=== PATIENT | female | born 1990 | race Caucasian/White ===

== ENCOUNTER → 2018-09-13 | Outpatient (CLI) | payer BC | LOC: CIMAGING 09:39 | PROVIDERS: ATTEND Physician Assistant Medical | DX: R22.1 Localized swelling, mass and lump, neck (principal) ==

== ENCOUNTER 2018-10-25 08:13 | Observation (INO) | payer BC ==
[2018-10-25] MEDS ORDERED: LR 1,000 ML IV ONE (08:25)
[2018-10-25] MEDS ORDERED: MIDAZOLAM 2 MG/2 ML VIAL IVP ONE (08:39)
--- NOTE | 2018-10-25 08:39 | PDANEPAE ---
ANE Past Medical History - Cardiovascular History Hx Hypertension: No Hx Arrhythmias: No Hx Chest Pain: No Hx Coronary Artery / Peripheral Vascular Disease: No Hx CHF / Valvular Disease: No Hx Palpitations: No - Pulmonary History Hx COPD: No Hx Asthma/Reactive Airway Disease: No Hx Recent Upper Respiratory Infection: No Hx Oxygen in Use at Home: No Hx Sleep Apnea: No Sleep Apnea Screening Result - Last Documented: Negative - Neurologic History Hx Cerebrovascular Accident: No Hx Seizures: No Hx Dementia: No - Endocrine History Hx Diabetes: No Hypothyroid: No Hyperthyroid: No Obesity: no - Renal History Hx Renal Disorders: No - Liver History Hx Hepatic Disorders: No - Neurological & Psychiatric Hx Hx Neurological and Psychiatric Disorders: No Neurological / Psychiatric History Comment: situational anxiety - Cancer History Hx Cancer: No - Congenital Disorder History Hx Congenital Disorders: No - GI History GERD: no Hx Gastrointestinal Disorders: No - Other Health History Other Health History: dental implant - Chronic Pain History Chronic Pain: No - Surgical History Prior Surgeries: none ANE Review of Systems Review of Systems: - Exercise capacity Exercise capacity: >=4 METS METS (RN): 5 METS ANE Patient History - Allergies Allergies/Adverse Reactions: No Known Allergies Allergy (Unverified 10/16/18 09:01) - Home Medications Home Medications: Spironolactone 100 mg PO DAILY 10/16/18 [Last Taken Unknown] Spironolactone [Aldactone 25 MG (*)] 50 mg PO DAILY 10/16/18 [Last Taken Unknown ] - Anes Hx Anes Hx: no prior problems Hx Anesthesia Complications (with details): dental implant surgery only. - Smoking Hx Smoking Status: Never smoked - Alcohol Use Alcohol Use: Occasionally - Family Anes Hx Family Anes Hx: neg - N/A Family Hx Anesthesia Complications: none ANE Labs/Vital Signs - Labs Result Diagrams: 10/25/18 09:00 - Vital Signs Height: 175.26 cm Weight: 64.864 kg ANE Physical Exam - Airway Neck exam: FROM Mallampati Score: Class 1 Mouth exam: normal dental/mouth exam - Pulmonary Pulmonary: no respiratory distress, no rales or rhonchi, clear to auscultation - Cardiovascular Cardiovascular: regular rate and rhythym, no murmur, rub, or gallop - ASA Status ASA Status: I ANE Anesthesia Plan Anesthesia Plan: general endotracheal anesthesia Total IV Anesthesia: No
[2018-10-25] MEDS ORDERED: DEXAMETHASONE 10 MG/ML VIAL IVP ONE (09:42)
[2018-10-25] MEDS ORDERED: ceFAZolin 2 GM/DEXTROSE 100 ML IV ONE ×2 (09:42→10:00)
--- NOTE | 2018-10-25 09:42 | PDHPUP ---
History & Physical Update H&P update statement: This history and physical update is based on an assessment of the patient which was completed after admission or registration (within 24 hours), but prior to the surgery/procedure. H&P update: H&P reviewed & patient examined, no change in patient's condition since H&P completed
[2018-10-25] MEDS ORDERED: DEXAMETHASONE 4 MG/ML VIAL IV ONE (09:45)
[2018-10-25] MEDS ORDERED: fentaNYL 100 MCG/2 ML INJ ONE ×3 (10:09→13:16)
[2018-10-25] MEDS ORDERED: PROPOFOL 200 MG/20 ML VIAL ONE (10:09)
[2018-10-25] MEDS ORDERED: LIDO/EPI 1% **for epidural** 30 ML SDV ONE (10:10)
[2018-10-25] MEDS ORDERED: KETOROLAC 30 MG/1 ML SDV ONE (10:10)
[2018-10-25] MEDS ORDERED: ROCURONIUM 50 MG/5 ML VIAL ONE (10:10)
[2018-10-25] MEDS ORDERED: BACITRACIN ZINC 14.2 GM OINTTUBE TP ONE (10:10)
[2018-10-25] MEDS ORDERED: ONDANSETRON 4 MG/2 ML VIAL ONE ×3 (10:10→13:17)
[2018-10-25] MEDS ORDERED: LIDOCAINE 2% 5 ML SDV ONE (10:11)
[2018-10-25] MEDS ORDERED: LIDO/EPI 1% **Not for Epidural 20 ML MDV ONE (10:11)
[2018-10-25] MEDS ORDERED: NALOXONE HCL 0.4 MG/ML INJ IVP PRN (10:20)
[2018-10-25] MEDS ORDERED: HYDROCODONE/APAP 5/325 TAB PO PRN (10:20)
[2018-10-25] MEDS ORDERED: MEPERIDINE 25 MG/0.5 ML AMP IVP PRN (10:20)
[2018-10-25] MEDS ORDERED: oxyCODONE IR 5 MG TAB PO PRN (10:20)
[2018-10-25] MEDS ORDERED: ONDANSETRON 4 MG/2 ML VIAL IVP PRN (10:20)
[2018-10-25] MEDS ORDERED: LR 500 ML IV PRN (10:20)
[2018-10-25] MEDS ORDERED: PHENYLEPHRINE HCL 100 MCG/ML SYR IVP PRN (10:20)
[2018-10-25] MEDS ORDERED: PROMETHAZINE HCL 25 MG/ML INJ IVP PRN (10:20)
[2018-10-25] MEDS ORDERED: ACETAMINOPHEN 500 MG TAB PO PRN (10:20)
[2018-10-25] MEDS ORDERED: ceFAZolin 1 GM VIAL ONE ×2 (10:24)
[2018-10-25] MEDS ORDERED: DEXAMETHASONE 4 MG/ML VIAL ONE ×2 (10:45)
[2018-10-25] MEDS ORDERED: PHENYLEPHRINE HCL 100 MCG/ML SYR ONE (10:46)
[2018-10-25] MEDS ORDERED: GLYCOPYRROLATE 0.2 MG/1 ML VIAL ONE ×2 (12:27)
[2018-10-25] MEDS ORDERED: NEOSTIGMINE METHYLSULFATE 5 MG/5 ML SYR ONE (12:27)
[2018-10-25] MEDS: fentaNYL 100 MCG/2 ML INJ IVP PRN ×2 (13:21→13:37)
--- NOTE | 2018-10-25 13:21 | POSTOPPROG ---
Post Op Note Date of Operation: 10/25/18 Surgeon: Felipe Rg Furniture Inspector: Liban Porter Anesthesiologist: CLARE Anesthesia: GET(General Endotracheal) Pre-op Diagnosis: TGD cyst Post-op Diagnosis: same Indication: enlarging cyst Procedure: Rich Findings: Large cyst with inflammation and scarring around hyoid Inf/Abcess present in the surg proc area at time of surgery?: No Depth: Deep Incisional (Fascial) Complications: none Drains: Imtiaz Hartmann
--- NOTE | 2018-10-25 13:29 | POSTANESTH ---
Post Anesthetic Evaluation Cardiovascular Status: Normal, Stable Respiratory Status: Normal, Stable Level of Consciousness/Mental Status: Can Participate in Eval Pain Control: Adequate, Prn Tx Ordered Nausea/Vomiting Control: Adequate, Prn Tx Ordered Complications Possibly Related to Anesthesia: None Noted
[2018-10-25] MEDS ORDERED: D5W LR 1,000 ML IV SCH (13:30)
[2018-10-25] MEDS ORDERED: PROMETHAZINE HCL 25 MG/ML INJ ONE (13:39)
[2018-10-25] MEDS ORDERED: oxyCODONE IR 5 MG TAB ONE (13:44)
[2018-10-25] MEDS ORDERED: ACETAMINOPHEN 500 MG TAB ONE (13:45)
[2018-10-25] MEDS ORDERED: PETROLAT,WHT/MIN OIL/SOD CHL 3.5 GM OPHT.OINT EACHEYE PRN (15:03)
[2018-10-25] MEDS ORDERED: HYDROmorphONE/DILAUDID 2 MG/ML INJ IVP PRN (16:33)
--- NOTE | 2018-10-25 17:49 | SOAPPROG ---
SOAP Progress Note Assessment/Plan: Assessment: Pt had some trouble getting pain under control, but is now more comfortable. She complains of right eye irritation , likely had an eye abrasion. I did not see any foreign body. Plan: Likely discharge in the am. Mom given a script for hycet 7.5/325 tablet quant #25 to fill for the pt. 10/25/18 17:46 Subjective: Pt complains of right eye irritation. The anesthesiologist gave her lacrilube. No SOB On exam the eye looks OK. Neck is flat Objective: Vital Signs Temp Pulse Resp BP Pulse Ox 36.9 C 62 14 91/51 L 99 10/25/18 17:19 10/25/18 17:19 10/25/18 17:19 10/25/18 17:19 10/25/18 17:19 Laboratory Results 10/25/18 09:00 10/24/18 10/25/18 10/26/18 05:59 05:59 05:59 Intake Total 1630 Output Total 35 Balance 1595 ICD10 Worksheet Patient Problems: Problems Problem Status Onset Thyroglossal cyst Acute - ICD10 Problem Qualifiers (1) Thyroglossal cyst
[2018-10-25] MEDS: HYDROCODONE/APAP 5/325 TAB PO PRN (20:12)
[2018-10-25] MEDS: ONDANSETRON 4 MG/2 ML VIAL IVP PRN (20:12)
[2018-10-26] MEDS: ONDANSETRON 4 MG/2 ML VIAL IVP PRN ×2 (01:33→06:24)
[2018-10-26] MEDS: HYDROCODONE/APAP 5/325 TAB PO PRN ×3 (01:34→06:24)
--- NOTE | 2018-10-26 05:58 | GOP ---
DATE OF OPERATION: 10/25/2018 SURGEON: Felipe Rg MD ASSISTANT TEACHER: Liban Porter MD. ANESTHESIA: General. PREOPERATIVE DIAGNOSIS: Thyroglossal duct cyst. POSTOPERATIVE DIAGNOSIS: Thyroglossal duct cyst. PROCEDURE PERFORMED: Excision of thyroglossal duct cyst. FINDINGS: The cyst itself was approximately 3.5 x 3 cm in size extending both anterior and posterior to the hyoid bone. SPECIMENS: Thyroglossal duct cyst with central hyoid bone. ESTIMATED BLOOD LOSS: 50 mL. INDICATIONS: The patient is a 28-year-old woman with a large thyroglossal duct cyst. DESCRIPTION OF PROCEDURE: The patient was taken the OR and positively identified, placed on monitors , and general anesthesia was induced. The neck was then prepped and draped in normal sterile fashion . An incision was marked out along an anterior neck skin crease and infiltrated with 5 cc of 1% lido mikhail with 1:100,000 epinephrine. The skin was then sharply incised. Dissection was then carried do wn through the platysma. Superior and inferior subplatysmal flaps were then raised. The strap muscl es were then identified inferiorly. The cyst itself was already the strap muscles more tracy periorly. These strap muscles were then elevated off from around the cyst itself and then transected close to where they attached to the hyoid bone laterally. Dissection was then carried down onto the anterior border of the thyroid cartilage and then blunt dissection was used to elevate the cyst away from the thyroid cartilage and then up between the thyrohyoid membrane to the hyoid bone itself. At this point, the hyoid bone was skeletonized on both sides. There was quite a bit of fibrosis along the left side. The cuts were made on both sides and then dissection was carried up into the soft tis sues above the hyoid bone. At this point, the cyst was ruptured. This fluid was suctioned away. I then used blunt dissection to sweep away remaining cyst wall from the deep surface of the wound. No tract was located extending up to the tongue base. A core of some tongue musculature was removed in this region. At this point, the wound was irrigated with sterile saline solution. Hemostasis was as sured. I then reapproximated the strap muscles to the tongue musculature at the level of the hyoid w ith interrupted 3-0 Vicryl suture. The strap muscles were then reapproximated to the midline with se veral 3-0 Vicryl sutures. The platysma layer was reapproximated with interrupted 4-0 Monocryl follow ed by a 5-0 Prolene skin suture in interrupted fashion. Prior to this closure, I did place a 10-Fren ch suction drain through a separate stab incision and secured it with a drain stitch. A sterile pressure dressing was placed and the case was terminated. The anesthetic was discontinued. The patient was extubated and taken to the postoperative care unit in good condition, having tolera braulio the procedure well. COMPLICATIONS: None. /[id number]/MODL
[2018-10-26] MEDS ORDERED: DEXAMETHASONE 4 MG/ML VIAL IVP ONE (08:01)
[2018-10-26 09:34] VITALS: BP 101/54
== END 2018-10-26 10:11 | disposition home or self-care (01) ==
LOC: F3E 08:13
PROVIDERS: ADMIT Otolaryngology; ATTEND Otolaryngology
PROC: 0JB40ZZ Excision of Right Neck Subcutaneous Tissue and Fascia, Open Approach (ICD-10-PCS; principal; 2018-10-25 10:00)
DX: Q89.2 Congenital malformations of other endocrine glands (principal)
CPT/HCPCS: 60280; 72040; G0378; J0690; J1100; J1170; J1885; J2250; J2370; J2405; J2550; J2704; J2710; J3010